=== PATIENT | female | born 1990 | race Caucasian/White ===

== ENCOUNTER 2016-11-06 02:19 | Emergency (ER) | payer OTHER ==
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
[2016-11-06 02:27] VITALS: BP 144/76; PULSE 84; RESP 16; TEMP 98.1; O2SAT 96
== END 2016-11-06 02:29 | disposition home or self-care (01) ==
DX: F10.129 Alcohol abuse with intoxication, unspecified (principal); V46.5XXA Car driver injured in collision with other nonmotor vehicle in traffic accident, initial encounter; Y92.89 Other specified places as the place of occurrence of the external cause; Y99.8 Other external cause status; Y93.89 Activity, other specified